=== PATIENT | male | born 1960 | race Caucasian/White ===

== ENCOUNTER → 2019-06-30 | Outpatient (REF) | payer OTHER | LOC: M LAB REF 15:05 | PROVIDERS: ATTEND Otolaryngology | DX: C44.311 Basal cell carcinoma of skin of nose (principal) ==

== ENCOUNTER 2019-08-29 09:42 | Day surgery (SDC) | payer OTHER ==
[~2019-08-29] VITALS: Ht 180.3 cm; Wt 97.1 kg
[~2019-08-29 09:42] MED LIST: CELE1CAP4 PO; DEPO200I7 IM; FLOM0.4C39 PO; LIDOCAINE 1% MDV 20ML VIAL SQ PRN; LR 1,000 ML IV ONE; OMEP-172 PO
[2019-08-29] MEDS ORDERED: LIDOCAINE 2% INJ 100 MG/5 ML SDV (FOR ANES.) As Ordered ONE (12:01)
[2019-08-29] MEDS ORDERED: PROPOFOL 200 MG/20 ML VIAL As Ordered ONE (12:01)
[2019-08-29] MEDS ORDERED: fentaNYL 100 MCG/2 ML INJECTION (J3010) As Ordered ONE ×3 (12:03→15:29)
[2019-08-29] MEDS ORDERED: MIDAZOLAM INJ 2 MG/2 ML VIAL (J2250) As Ordered ONE (12:03)
[2019-08-29] MEDS ORDERED: LIDOCAINE W/EPINEPHRINE 1% 20ML VIAL As Ordered ONE (12:09)
[2019-08-29] MEDS ORDERED: ROCURONIUM BROMIDE 50 MG/5 ML VIAL As Ordered ONE (12:51)
[2019-08-29] MEDS ORDERED: dexameTHASONE 4 MG/ML 1ML VIAL (J1100) As Ordered ONE (12:52)
[2019-08-29] MEDS ORDERED: ONDANSETRON 4MG/2ML VIAL (J2405) As Ordered ONE ×2 (12:52→15:28)
[2019-08-29] MEDS ORDERED: BACITRACIN OINT 30GM As Ordered ONE (13:24)
[2019-08-29] MEDS ORDERED: SUGAMMADEX SODIUM 500 MG/5 ML VIAL (BRIDION) As Ordered ONE (14:46)
[2019-08-29] MEDS ORDERED: PERCOCET 5MG/325MG TAB As Ordered ONE (15:29)
[2019-08-29] MEDS ORDERED: METOCLOPRAMIDE INJ 10MG/2ML VIAL (J2765) As Ordered ONE (15:29)
[2019-08-29] MEDS ORDERED: METOCLOPRAMIDE INJ 10MG/2ML VIAL (J2765) IV PRN (15:30)
[2019-08-29] MEDS ORDERED: PERCOCET 5MG/325MG TAB PO PRN (15:30)
[2019-08-29] MEDS: ONDANSETRON 4MG/2ML VIAL (J2405) IV PRN ×2 (15:30→15:56)
[2019-08-29] MEDS ORDERED: LR 1,000 ML IV SCH ×2 (15:30→16:00)
[2019-08-29] MEDS: fentaNYL 100 MCG/2 ML INJECTION (J3010) IV PRN ×4 (15:30→15:45)
[2019-08-29] MEDS ORDERED: ACETAMINOPH W/CODEINE #3 TAB UD PO PRN (16:00)
[2019-08-29] MEDS ORDERED: HYDROMORPHONE HCL 0.5 MG/ 0.5 ML SYRINGE (J1170 PER 1) As Ordered ONE (16:23)
[2019-08-29] MEDS: HYDROMORPHONE HCL 0.5 MG/ 0.5 ML SYRINGE (J1170 PER 1) IV PRN ×2 (16:28→16:45)
[2019-08-29] MEDS ORDERED: PROMETHAZINE INJ 25 MG/ML VIAL (J2550) As Ordered ONE (16:32)
[2019-08-29 19:00] VITALS: BP 160/76
--- NOTE | 2019-08-30 15:04 | RO ---
DATE OF PROCEDURE: 08/29/2019 PREOPERATIVE DIAGNOSIS: Basal cell carcinoma skin of the nose. POSTOPERATIVE DIAGNOSIS: Basal cell carcinoma skin of the nose. OPERATIVE PROCEDURE: Resection of basal cell carcinoma skin of the nose and reconstruction with a forehead flap. SURGEON: Adria Rodriguez MD SENIOR MAINTENANCE MECHANIC: ANESTHESIA: DESCRIPTION OF PROCEDURE: The lesion that is excised was 2 cm in diameter. I cleaned the area with Betadine. I marked out the lesion. I infiltrate with lidocaine with epinephrine. Then using scalpel, I resected the lesion from his nose down to the cartilage. There is no obvious involvement of the deep margin. I marked out the borders of the specimen and then sent the specimen for frozen section biopsy. The biopsy did come positive at 9 o'clock position. Because of the size of the defect, I elected to do a resection involving the nasal segments. So, I used the right tip of the nasal segment and I marked that out. I infiltrated lidocaine with epinephrine. I excised that area. Bleeding is controlled with cautery. I marked out the 9 o'clock position and repeat frozen section was negative for cancer. I then made a template and then used that to fashion the flap. The flap measured 7 cm from the supraorbital rim. So, I infiltrated lidocaine with epinephrine and then I made an incision dividing skin and subcutaneous tissue. The flap was then elevated and bleeding was controlled with cautery. Once this was done, the flap was rotated inferiorly. I wrapped it in saline. I then elevated the edges of donor site and then mobilized them. I closed then the margins of the donor site with interrupted #2-0 Vicryl suture. I closed the skin with a #3-0 Prolene. I did a [place] drain in the wound to ensure adequate drainage. I then directed my attention of the flap. I removed the fat from the distal part of the flap. Any bleeding was seen was cauterized with bipolar cautery. I rotated the flap in place and sutured it in with interrupted #4-0 Vicryl and then #5-0 nylon. The flap was sutured completely. I checked to make sure there was no further bleeding. Any vessels seen were cauterized with bipolar cautery. Dressing was applied to the forehead, and then dressing was applied to the pedicle. Bacitracin ointment was placed on the incision. Approximately 100 mL estimated blood loss. The patient was extubated and transferred to the recovery room in excellent condition. The patient will be brought back in 3 weeks for second stage reconstruction. ADDENDUM: Dr. Tello was my medical claims assistant, who helped by holding retractors, cauterizing where necessary, and tying sutures.
== END 2019-08-29 19:15 | disposition home or self-care (01) ==
LOC: M SDC 09:42
PROVIDERS: ATTEND Otolaryngology
DX: C44.311 Basal cell carcinoma of skin of nose (principal); K21.9 Gastro-esophageal reflux disease without esophagitis; Z79.899 Other long term (current) drug therapy
CPT/HCPCS: 11642; 15731; 88305; J1100; J2250; J2405; J2765; J3010

== ENCOUNTER → 2020-06-04 | Outpatient (CLI) | payer OTHER ==
[~2020-06-04] MED LIST changes: -LIDOCAINE 1% MDV 20ML VIAL SQ PRN; -LR 1,000 ML IV ONE; -OMEP-172 PO; +OMEP1CAP73 PO
[2020-06-04 12:49] LABS: BASO # 0.1 10^3/uL (0.0-0.2); BASO % 0.8 % (0.0-1.0); EOS # 0.1 10^3/uL (0.0-0.5); EOS % 0.9 % (0.0-3.0); HEMATOCRIT 37.5 % (42.0-52.0); HEMOGLOBIN 12.6 g/dl (13.5-17.5); LYMPH # 1.7 10^3/uL (1.5-5.0); LYMPH % 23.3 % (24.0-44.0); MEAN CORPUSCULAR HEMOGLOBIN 29.3 pg (27.0-33.0); MEAN CORPUSCULAR HGB CONC 33.6 g/dl (32.0-36.5); MEAN CORPUSCULAR VOLUME 87.2 fl (80.0-96.0); MONO # 0.5 10^3/uL (0.0-0.8); MONO % 6.9 % (0.0-5.0); PLATELET COUNT, AUTOMATED 234 10^3/uL (150-450); WHITE BLOOD COUNT 7.4 10^3/uL (4.0-10.0)
[2020-06-04 13:32] LABS: ALBUMIN 3.4 GM/DL (3.2-5.2); ALT/SGPT 23 U/L (12-78); BILIRUBIN,TOTAL 0.4 MG/DL (0.2-1.0); BLOOD UREA NITROGEN 20 MG/DL (7-18); CALCIUM LEVEL 8.3 MG/DL (8.5-10.1); CARBON DIOXIDE LEVEL 27 MEQ/L (21-32); CHLORIDE LEVEL 109 MEQ/L (98-107); CHOLESTEROL LEVEL 177 MG/DL (<200); CHOLESTEROL RISK RATIO 4.317 (<5); CREATININE FOR GFR 0.96 MG/DL (0.70-1.30); GLOMERULAR FILTRATION RATE > 60.0 (>56); GLUCOSE, FASTING 90 MG/DL (70-100); HDL CHOLESTEROL 41 MG/DL (>40); LDL CHOLESTEROL 98 MG/DL (<100); NON-HDL-C 136 MG/DL; SODIUM LEVEL 140 MEQ/L (136-145); TOTAL PROTEIN 5.9 GM/DL (6.4-8.2); TRIGLYCERIDES LEVEL 188 MG/DL (<150)
== END ==
LOC: M LAB 11:43
PROVIDERS: ATTEND Dermatology
DX: D17.0 Benign lipomatous neoplasm of skin and subcutaneous tissue of head, face and neck (principal); L70.0 Acne vulgaris

== ENCOUNTER → 2020-10-26 | Outpatient (CLI) | payer OTHER | LOC: M LABSMTC 11:24 | PROVIDERS: ATTEND Anesthesiology | DX: Z01.812 Encounter for preprocedural laboratory examination (principal); Z20.822 Contact with and (suspected) exposure to COVID-19 ==

== ENCOUNTER 2020-10-31 06:47 | Day surgery (SDC) | payer OTHER ==
[~2020-10-31] VITALS: Ht 190.5 cm; Wt 99.8 kg
[~2020-10-31 06:47] MED LIST changes: +LIDOCAINE 1% MDV 20ML VIAL SQ PRN
[2020-10-31] MEDS ORDERED: LR 1,000 ML IV ONE (07:00)
[2020-10-31] MEDS ORDERED: SCOPOLAMINE 1MG TRANSDERMAL PATCH As Ordered ONE (07:44)
[2020-10-31] MEDS ORDERED: LIDOCAINE 2% 100MG/5ML SDV (FOR ANES.) As Ordered ONE (07:47)
[2020-10-31] MEDS ORDERED: fentaNYL 100 MCG/2 ML INJECTION (J3010) As Ordered ONE (07:47)
[2020-10-31] MEDS ORDERED: ROCURONIUM BROMIDE 50 MG/5 ML VIAL As Ordered ONE (07:47)
[2020-10-31] MEDS ORDERED: propofoL 200 MG/20 ML VIAL As Ordered ONE (07:47)
[2020-10-31] MEDS ORDERED: MIDAZOLAM INJ 2MG/2ML VIAL (J2250 PER 1MG) As Ordered ONE (07:47)
[2020-10-31] MEDS ORDERED: dexameTHASONE 4 MG/ML 1ML VIAL (J1100 PER 1MG) As Ordered ONE (07:47)
[2020-10-31] MEDS ORDERED: ONDANSETRON 4MG/2ML VIAL As Ordered ONE (07:47)
[2020-10-31] MEDS ORDERED: SCOPOLAMINE 1MG TRANSDERMAL PATCH TOP ONE (08:00)
[2020-10-31] MEDS ORDERED: METHYLENE BLUE 0.5% (5MG/ML) 10 ML AMP (PROVAYBLUE) As Ordered ONE (08:06)
[2020-10-31] MEDS ORDERED: BACITRACIN OINTMENT 30GM TUBE As Ordered ONE (08:06)
[2020-10-31] MEDS ORDERED: EPINEPHrine 1MG/ML INJ 30ML MD-VIAL As Ordered ONE (08:06)
[2020-10-31] MEDS ORDERED: LIDOCAINE W/EPINEPHRINE 1% 20ML VIAL As Ordered ONE (08:06)
[2020-10-31] MEDS ORDERED: propofoL 500 MG/50 ML VIAL As Ordered ONE (08:25)
[2020-10-31] MEDS ORDERED: KETAMINE HCL 200 MG/20 ML VIAL As Ordered ONE (08:40)
[2020-10-31] MEDS ORDERED: SUGAMMADEX SODIUM 500 MG/5 ML VIAL (BRIDION) As Ordered ONE (08:52)
[2020-10-31] MEDS ORDERED: LR 1,000 ML IV SCH ×2 (09:30)
[2020-10-31] MEDS ORDERED: PERCOCET 5MG/325MG TAB PO PRN (09:30)
[2020-10-31] MEDS ORDERED: METOCLOPRAMIDE INJ 10MG/2ML VIAL (J2765 PER 1) IV PRN (09:30)
[2020-10-31] MEDS ORDERED: fentaNYL 100 MCG/2 ML INJECTION (J3010) IV PRN (09:30)
[2020-10-31] MEDS ORDERED: ONDANSETRON 4MG/2ML VIAL IV PRN (09:30)
[2020-10-31] MEDS ORDERED: ACETAMINOPHEN 500 MG TAB PO PRN (09:30)
[2020-10-31 10:14] VITALS: BP 146/71
--- NOTE | 2020-10-31 12:23 | RO ---
OPERATIVE NOTE DATE OF OPERATION: 10/31/2020 PREOPERATIVE DIAGNOSIS: Cancer, skin of nose. POSTOPERATIVE DIAGNOSIS: Cancer, skin of nose. PROCEDURE: Revision flap skin on nose. SURGEON: Adria Rodriguez MD [employer] INSPECTOR: ANESTHESIA: General. DESCRIPTION OF PROCEDURE: Under general anesthesia with the patient prepped and draped in the usual manner, I cleaned the area with Betadine. I infiltrated it with Lidocaine with Epinephrine. I made an incision at the superior and posterior aspects of the flap elevating less than 60% of the surface area of the flap. I elevated the area that had been marked out as needing some tissue removal. Then I used a #10 blade and removed some soft tissue in this area to flatten the flap. Once this was done everything looked good. I cauterized the area. There were only two points that were cauterized because there was very little bleeding. I then closed the wound with interrupted 5-0 nylon. I left the superior part open. I also put a tacking stitch in the mid portion of the elevated flap of 4-0 Prolene to hold it to prevent a hematoma formation. The patient tolerated the procedure well and was extubated and transferred to the recovery room in excellent condition.
== END 2020-10-31 10:42 | disposition home or self-care (01) ==
LOC: M SDC 06:47
PROVIDERS: ATTEND Otolaryngology
DX: C44.311 Basal cell carcinoma of skin of nose (principal); K21.9 Gastro-esophageal reflux disease without esophagitis; M12.9 Arthropathy, unspecified; N40.0 Benign prostatic hyperplasia without lower urinary tract symptoms; T88.59XD Other complications of anesthesia, subsequent encounter; Z79.899 Other long term (current) drug therapy
CPT/HCPCS: 15839; J1100; J2250; J2405; J3010; Q9968

== ENCOUNTER → 2021-03-16 | Outpatient (CLI) | payer OTHER ==
[~2021-03-16] MED LIST changes: -LIDOCAINE 1% MDV 20ML VIAL SQ PRN; +MAGN250T22 PO; +MELA10TA6 PO
== END ==
LOC: M LABSMTC 09:11
PROVIDERS: ATTEND Anesthesiology
DX: Z01.818 Encounter for other preprocedural examination (principal)

== ENCOUNTER 2021-03-21 11:12 | Day surgery (SDC) | payer OTHER ==
[~2021-03-21] VITALS: Ht 190.5 cm; Wt 94.7 kg
[~2021-03-21 11:12] MED LIST changes: +NS 1,000 ML IV ONE
[2021-03-21] MEDS ORDERED: LIDOCAINE 2% 100MG/5ML SDV (FOR ANES.) As Ordered ONE (13:40)
[2021-03-21] MEDS ORDERED: fentaNYL 100 MCG/2 ML INJECTION As Ordered ONE (13:40)
[2021-03-21] MEDS ORDERED: propofoL 200 MG/20 ML VIAL As Ordered ONE ×2 (13:40→13:51)
[2021-03-21 14:20] VITALS: BP 129/71
== END 2021-03-21 14:25 | disposition home or self-care (01) ==
LOC: M OPP 11:12
PROVIDERS: ATTEND Internal Medicine Gastroenterology
DX: K31.7 Polyp of stomach and duodenum (principal); K22.8 Other specified diseases of esophagus; K29.70 Gastritis, unspecified, without bleeding; R12 Heartburn; Z79.899 Other long term (current) drug therapy
CPT/HCPCS: 43236; 43239; 43251; 88305; J3010

== ENCOUNTER → 2022-06-24 | Outpatient (REF) | payer OTHER ==
[~2022-06-24] MED LIST changes: +MELA10TA14 PO; -MELA10TA6 PO; -NS 1,000 ML IV ONE
== END ==
LOC: M LAB REF 11:55
PROVIDERS: ATTEND Otolaryngology
DX: C44.311 Basal cell carcinoma of skin of nose (principal)

== ENCOUNTER → 2022-07-11 | Outpatient (REF) | payer OTHER | LOC: M LAB REF 09:10 | PROVIDERS: ATTEND Otolaryngology | DX: C44.311 Basal cell carcinoma of skin of nose (principal) ==

== ENCOUNTER → 2024-07-12 | Outpatient (CLI) | payer OTHER ==
[~2024-07-12] MED LIST changes: +ISOVUE-370 76% 100ML VIAL As Ordered ONE; +POTA99CA2 PO
== END ==
LOC: M RAD 08:50
PROVIDERS: ATTEND Physician Assistant Medical
DX: R63.4 Abnormal weight loss (principal)

== ENCOUNTER 2024-07-21 10:09 | Day surgery (SDC) | payer OTHER ==
[~2024-07-21] VITALS: Ht 190.5 cm; Wt 79.2 kg
[~2024-07-21 10:09] MED LIST changes: -ISOVUE-370 76% 100ML VIAL As Ordered ONE
[2024-07-21] MEDS ORDERED: propofoL 200 MG/20 ML VIAL As Ordered ONE (12:04)
[2024-07-21] MEDS ORDERED: GLYCOPYRROLATE INJ 0.2 MG/ML 2 ML VIAL As Ordered ONE (12:04)
[2024-07-21] MEDS ORDERED: LIDOCAINE 2% 100MG/5ML SDV (FOR ANES.) As Ordered ONE (12:04)
[2024-07-21 13:35] VITALS: BP 132/74; O2SAT 99
== END 2024-07-21 13:37 | disposition home or self-care (01) ==
LOC: M OPP 10:09
PROVIDERS: ATTEND Internal Medicine Gastroenterology
DX: D12.4 Benign neoplasm of descending colon (principal); K21.00 Gastro-esophageal reflux disease with esophagitis, without bleeding; K29.50 Unspecified chronic gastritis without bleeding; K29.80 Duodenitis without bleeding; K64.8 Other hemorrhoids; R63.4 Abnormal weight loss; K57.30 Diverticulosis of large intestine without perforation or abscess without bleeding; Z79.899 Other long term (current) drug therapy; Z87.19 Personal history of other diseases of the digestive system; Z85.828 Personal history of other malignant neoplasm of skin; Z80.42 Family history of malignant neoplasm of prostate
CPT/HCPCS: 43239; 45385; 88305; J1596